=== PATIENT | male | born 1960 | race Caucasian/White ===

== ENCOUNTER 2018-08-16 05:52 | Emergency (ER) | payer OTHER ==
[~2018-08-16] VITALS: Ht 170.2 cm; Wt 77.1 kg
[~2018-08-16 05:52] MED LIST: COLACE100 MG PO; FLOMAX PO; IBUPROFEN 800800 M1 PO; MIRALAX17 GM PO; NAPROSYN500 MG PO; PERCOCET 5-3251 EACH PO; TYLENOL325 MG PO; UNICOMPLEX M TA1 TA1 PO
[2018-08-16] MEDS ORDERED: COZAAR 25 MG TA25 M1 (05:59)
[2018-08-16 06:08] LABS: HEMATOCRIT 47.1 % (42.0-52.0); HEMOGLOBIN 16.4 gm/dL (14.0-18.0); MCH 30.6 pg (26.0-34.0); MCHC 34.9 g/dL (28.0-37.0); MCV 87.9 fL (80.0-100.0); MPV 6.8 fl. (7.2-11.1); NUCLEATED RBCS 0 /100WBC; PLATELET COUNT* 214 thou/uL (150-400); RBC 5.36 mil/uL (4.50-6.00); RDW-CV 13.4 % (10.5-14.5); WBC 6.7 thou/uL (4.0-11.0)
[2018-08-16 06:25] LABS: PROTIME 10.2 Seconds (9.20-11.50)
[2018-08-16 06:31] LABS: URINE BILIRUBIN NEGATIVE (Negative); URINE BLOOD 1+ (Negative); URINE CLARITY CLEAR; URINE COLOR YELLOW; URINE GLUCOSE-RANDOM NEGATIVE (Negative); URINE KETONES NEGATIVE (Negative); URINE LEUKOCYTES-REFLEX NEGATIVE (Negative); URINE NITRITE-REFLEX NEGATIVE (Negative); URINE PROTEIN NEGATIVE (Negative); URINE UROBILINOGEN 0.2 E.U./dl (0.2-1.0)
[2018-08-16 06:42] LABS: CALCIUM 8.5 mg/dL (8.5-10.1); CREATININE 1.5 mg/dL (0.6-1.3); POTASSIUM 3.9 mmol/L (3.5-5.1)
[2018-08-16 06:44] LABS: BACTERIA-REFLEX 1-9 Few /HPF (None Seen); CASTS None Seen /LPF (None Seen); CRYSTALS None Seen /LPF (None Seen); MUCUS 0-3 Light strn/LPF (None Seen); SQUAMOUS 0-3 Few /LPF (0-3); URINE RBC 3-10 Few /HPF (0-2); URINE WBC-REFLEX 0-5 Rare /HPF (0-5)
[2018-08-16 06:53] LABS: ALBUMIN 3.7 g/dL (3.4-5.0); TOTAL BILIRUBIN 0.7 mg/dL (<0.1-1.0); TOTAL PROTEIN 7.2 g/dL (6.4-8.2)
[2018-08-16 07:02] LABS: ABSOLUTE EOSINOPHILS 0.1 thou/uL (0.0-0.7); ABSOLUTE LYMPHOCYTES 0.5 thou/uL (0.8-5.3); ABSOLUTE MONOCYTES 0.5 thou/uL (0.0-1.2); ABSOLUTE NEUTROPHILS 5.6 thou/uL (1.6-8.1); ANISOCYTOSIS 1+; PLATELET ESTIMATE ADEQUATE; POIKILOCYTOSIS 1+
[2018-08-16] MEDS ORDERED: ZOFRAN ODT4 MG PO (07:06)
[2018-08-16 08:36] VITALS: BP 112/65
--- NOTE | 2018-08-16 11:36 | EKG ---
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 : 1960 Requested By: Yennifer Whalen Order Number: [id number] MD: Camilo Jimenez Measurements Intervals [place] Rate: 87 P: 60 AR: 167 QRS: 79 QRSD: 84 T: 28 QT: 349 QTc: 420 Interpretive Statements Sinus rhythm Compared to ECG 03/30/2015 18:11:10 No significant changes Electronically Signed On 08-16-2018 11:35:46 DIRECTOR PRODUCT DEVELOPMENT by Camilo Jimenez [email or web address] <ELECTRONICALLY SIGNED> By: Camilo Jimenez MD, [facility] 08/16/18 1135 [phone] Camilo Jimenez MD, FACC /EPI
== END 2018-08-16 08:36 | disposition home or self-care (01) ==
LOC: M.ERS 05:52
PROVIDERS: Emergency Medicine
DX: R07.89 Other chest pain (principal); Z87.442 Personal history of urinary calculi; Z90.49 Acquired absence of other specified parts of digestive tract; Z88.5 Allergy status to narcotic agent

== ENCOUNTER 2018-10-18 02:38 | Inpatient (IN) | payer OTHER ==
[~2018-10-18] VITALS: Ht 170.2 cm; Wt 81.3 kg
[~2018-10-18 02:38] MED LIST changes: +COZAAR 25 MG TA25 M1 PO; +ZOFRAN ODT4 MG PO
[2018-10-18 02:47] VITALS: BP 158/102
[2018-10-18 03:01] LABS: ABSOLUTE BASOPHILS 0.1 thou/uL (0.0-0.2); ABSOLUTE EOSINOPHILS 0.1 thou/uL (0.0-0.7); ABSOLUTE LYMPHOCYTES 2.1 thou/uL (0.8-5.3); ABSOLUTE MONOCYTES 0.6 thou/uL (0.0-1.2); ABSOLUTE NEUTROPHILS 3.2 thou/uL (1.6-8.1); EOSINOPHILS 2.4 %; HEMATOCRIT 46.2 % (42.0-52.0); HEMOGLOBIN 16.4 gm/dL (14.0-18.0); MCH 30.9 pg (26.0-34.0); MCHC 35.5 g/dL (28.0-37.0); MCV 87.1 fL (80.0-100.0); MONOCYTES 9.7 %; NUCLEATED RBCS 0 /100WBC; PLATELET COUNT* 264 thou/uL (150-400); POLYS 52.9 %; RDW-CV 13.3 % (10.5-14.5); WBC 6.1 thou/uL (4.0-11.0)
[2018-10-18 03:52] LABS: ANION GAP 9 mmol/L (7-16); BUN 18 mg/dL (7-18); CHLORIDE 106 mmol/L (98-107); CO2 28 mmol/L (21-32); CREATININE 1.5 mg/dL (0.6-1.3); GLUCOSE 97 mg/dL (70-99); POTASSIUM 3.7 mmol/L (3.5-5.1); SODIUM 143 mmol/L (136-145)
[2018-10-18 04:03] LABS: ALBUMIN 3.7 g/dL (3.4-5.0); ALKALINE PHOSPHATASE 93 U/L (46-116); LIPASE 208 U/L (73-393); NT-PRO BRAIN NAT PEPTIDE 16 pg/mL (<300); SGOT 19 U/L (15-37); SGPT 40 U/L (30-65); TOTAL BILIRUBIN 0.5 mg/dL (<0.1-1.0); TROPONIN-I LEVEL <0.06 ng/mL (<0.06)
[2018-10-18 05:14] VITALS: BP 122/77
[2018-10-18 05:52] VITALS: BP 121/85
--- NOTE | 2018-10-18 05:56 | NUR ---
TRANSFER FROM ED RECIEVED REPORT AND ASSUMED CARE AT 0530. 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 VITAL SIGNS ARE STABLE. PT IS UP ADLIB. NPO UNTIL ABDOMINAL ULTRA SOUND AND FOR CARDIAC. PT DENIES ANY PAIN AT THIS TIME. ASSESSMENT COMPLETED, DISCUSSED PLAN OF CARE AND PT UNDERSTANDS. BED LOCKED AND CALL LIGHT WITHIN REACH. FALL PRECAUTIONS IN PLACE. HOURLY ROUNDING DONE AND ALL NEEDS MET. NURSING WILL CONTINUE TO MONITOR.
[2018-10-18 08:00] VITALS: BP 113/78
[2018-10-18 10:21] LABS: CHOLESTEROL 188 mg/dL (<200); HDL CHOLESTEROL 40 mg/dL (>40); LDL CHOLESTEROL 124 mg/dL (<100); TC:HDL 4.7 Ratio (Not establshd); TRIGLYCERIDE 124 mg/dL (<150); VLDL 25 mg/dL (<40)
[2018-10-18 10:24] LABS: SERUM ASSESSMENT Clear
--- NOTE | 2018-10-18 11:43 | 2DMMODE ---
[place] [address] 2 D/M-MODE ECHOCARDIOGRAM Name: TONI HERRON JR Room: [address] IN [facility]#: [id number] Admission: 10/18/18 Attend Phys: Gisselle Deshpande Discharge: Date of : 60 Date of Service: 10/18/18 1143 Report #: [id number] THIS REPORT FOR: //name// APPROVED REPORT Study performed: 10/18/2018 09:54:12 EXAM: Comprehensive 2D, Doppler, and color-flow Echocardiogram Patient Location: In-Patient Room #: [facility] Status: routine BSA: 1.92 HR: 61 bpm BP: 113/78 mmHg Rhythm: NSR Other Information Study Quality: Good Indications Chest Pain 2D Dimensions IVSd: 9.26 (7-11mm) LVOT Diam: 21.28 (18-24mm) LVDd: 44.15 mm PWd: 7.93 (7-11mm) Ascending Ao: 29.83 (22-36mm) LVDs: 26.36 (25-40mm) Aortic Root: 33.82 mm Volumes Left Atrial Volume (Systole) LA ESV Index: 21.60 mL/m2 Aortic Valve AoV Peak Cristino.: 0.95 m/s AO Peak Gr.: 3.59 mmHg LVOT Max P.70 mmHg AO Mean Gr.: 2.17 mmHg LVOT Mean P.27 mmHg LVOT Max V: 0.82 m/s AO V2 VTI: 18.73 cm LVOT Mean V: 0.51 m/s NAIF (VTI): 3.34 cm2 LVOT V1 VTI: 17.61 cm Mitral Valve E/A Ratio: 1.10 MV Decel. Time: 211.34 ms MV E Max Cristino.: 0.50 m/[place] [address] 2 D/M-MODE ECHOCARDIOGRAM Name: TONI HERRON JR Room: [address] IN [facility]#: [id number] Admission: 10/18/18 Attend Phys: Gisselle Deshpande Discharge: Date of : 60 Date of Service: 10/18/18 1143 Report #: [id number] MV PHT: 61.29 ms MVA (PHT): 3.59 cm2 TDI E/Lateral E': 3.57 E/Medial E': 5.56 Medial E' Cristino.: 0.09 m/s Lateral E' Cristino.: 0.14 m/s Pulmonary Valve PV Peak Cristino.: 0.82 m/s PV Peak Gr.: 2.68 mmHg Left Ventricle The left ventricle is normal size. There is normal LV segmental wall motion. There is normal left ventricular wall thickness. Left ventricular systolic function is normal. LVEF is 55-60%. Transmitral Doppler flow pattern suggests impaired LV relaxation. Right Ventricle The right ventricle is normal size. The right ventricular systolic function is normal. Atria The left atrium size is normal. The right atrium size is normal. Aortic Valve The aortic valve is normal in structure. No aortic regurgitation is present. There is no aortic valvular stenosis. Mitral Valve The mitral valve is normal in structure. Trace mitral regurgitation. No evidence of mitral valve stenosis. Tricuspid Valve The tricuspid valve is normal in structure. Unable to assess PA pressure. Trace tricuspid regurgitation. Pulmonic Valve The pulmonary valve is normal in structure. There is no pulmonic valvular regurgitation. Great Vessels The aortic root is normal in size. IVC is normal in size and collapses >50% with [place] [address] 2 D/M-MODE ECHOCARDIOGRAM Name: TONI HERRON JR Room: [address] IN [facility]#: [id number] Admission: 10/18/18 Attend Phys: Gisselle Deshpande Discharge: Date of : 60 Date of Service: 10/18/18 1143 Report #: [id number] There is no pericardial effusion. <Conclusion> The left ventricle is normal size. There is normal left ventricular wall thickness. Left ventricular systolic function is normal. LVEF is 55-60%. Transmitral Doppler flow pattern suggests impaired LV relaxation. Trace mitral regurgitation. IVC is normal in size and collapses >50% with inspiration. <ELECTRONICALLY SIGNED> By: Vin Serrano MD, FACC 10/18/18 1143 1143 1143 Vin Serrano MD, FACC /INF
--- NOTE | 2018-10-18 11:44 | NUR ---
VSS, ASSUMED CARE IN THE AM, ASSESSMENT PERFORMED AND CHARTED, FALL PRECAUTIONS IN PLACE AND CALL LIGHT IN REACH, PT IS A&O4 AND UP AD JONE, DENIES ANY PAIN IS TRACING SR/SB ON THE MONITOR, PT GOAL IS TO HAVE NO CHEST PAIN ON DAY OF CARE. WILL FOLLOW WITH PLAN OF CARE,
--- NOTE | 2018-10-18 13:55 | NUR ---
Assessment: CM spoke w/pt and spouse to discuss d/c planning and to educate on role of CM. pt is A&Ox4. lives at home w/spouse. Independent w/all ADLs. pt is employeed and drives. Has no DMEs nor any hx w/SNF or HH. pt denies any needs at this time. CM to continue to follow to provide support/assistance PRN.
--- NOTE | 2018-10-18 16:30 | EKG ---
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
--- NOTE | 2018-10-18 16:36 | EXE ---
[place] [address] STRESS ECHOCARDIOGRAM Name: TONI HERRON JR Room: [address] IN [facility]#: [id number] Admission: 10/18/18 Attend Phys: Gisselle Deshpande Discharge: Date of : 60 Date of Service: 10/18/18 1635 Report #: [id number] THIS REPORT FOR: //name// APPROVED REPORT Study performed: 10/18/2018 15:54:22 Exam: Stress Echocardiogram Indication: Chest pain , Palpitations Patient Location: In-Patient Stress Nurse: Manasa Ness RN Room #: [facility] [place][note 2] Supervising Physician: Vin Serrano MD Status: routine Ht: 5 ft 7 in HR: 62 bpm BP: 119/73 mmHg Rhythm: NSR Medical History Allergies: MORPHINE Cardiac Risk Factors: HTN, FHX of CAD Procedure The patient underwent an Exercise Stress Test using the [place] Protocol. Blood pressure, heart rate, and EKG were monitored. An Echocardiogram was performed by converting technician in four stages in quad fashion. At peak stress, four selected images were obtained and placed side by side with resting images for comparison. Stress Test Details HR Resting HR: 62 bpm Max Heart Rate (APMHR): 162 bpm Max HR Achieved: 167 bpm Target HR (85% APMHR): 137 bpm % of APMHR: 103 Recovery HR: 111 bpm HR response to stress: Normal HR response to stress BP Resting BP: 119/73 mmHg Max BP: 220/88 mmHg Recovery BP: 139/75 mmHg BP response to stress: Normal blood pressure response [place] [address] STRESS ECHOCARDIOGRAM Name: TONI HERRON JR Room: [address]#: [id number] Admission: 10/18/18 Attend Phys: Gisselle Deshpande Discharge: Date of : 60 Date of Service: 10/18/18 1635 Report #: [id number] Resting ECG: Sinus Rhythm, normal EKG Stress ECG: Sinus Tachycardia ST Change: none Arrhythmia: None Recovery ECG: Sinus Rhythm Recovery ST Change: None Recovery Arrhythmia: None Clinical Reason for Termination: Maximal effort Exercise duration: 7 min 5 sec Highest Stage Achieved: Stage 3: 3.4 mph at 14% grade. Exercise capacity: 8.72 METs The patient tolerated standard [place] protocol exercise without significant symptoms. Stress ECG Conclusion The baseline 12-lead EKG showed sinus rhythm with no significant ST or T wave abnormalities. EKGs obtained during and post exercise showed sinus rhythm and sinus tachycardia with no significant ST or T wave changes when compared to baseline. There were no stress-induced arrhythmias. Pre-Stress Echo The resting Echocardiogram showed normal left ventricular contractility with an estimated Ejection Fraction of about 60-65%. Post-Stress Echo The stress Echocardiogram showed normal left ventricular contractility with an estimated Ejection Fraction of about >70%. Conclusion Clinical Response: Non-ischemic Exercise Capacity: Average Stress ECG Response: Non-ischemic Stress Echo Images: Non-ischemic Other Information Study Quality: Good <ELECTRONICALLY SIGNED> By: Vin Serrano MD, FACC 10/18/18 1635 1635 1635 Vin Serrano MD, FACC /INF
[2018-10-18 16:56] VITALS: BP 105/74
[2018-10-18 19:50] VITALS: BP 111/64
[2018-10-19] VITALS: BP 101/51
--- NOTE | 2018-10-19 03:38 | NUR ---
RECIEVED REPORT AND ASSUMED CARE AT 1900. HEALTH INFORMATION TECHNOLOGIST IN PLACE. VITAL SIGNS ARE STABLE. PT UP ADLIB. PT DENIES ANY PAIN AT THIS TIME. ASSESSMENT COMPLETED, DISCUSSED PLAN OF CARE, PT UNDERSTANDS. BED LOCKED AND CALL LIGHT WITHIN REACH. FALL PRECAUTIONS IN PLACE. HOURLY ROUNDING AND ALL NEEDS MET. NURSING WILL CONTINUE TO MONITOR.
[2018-10-19 04:00] VITALS: BP 106/56
[2018-10-19 08:34] VITALS: BP 119/80
[2018-10-19] MEDS ORDERED: OMEPRAZOLE 20 M20 M1 PO (10:33)
[2018-10-19 10:36] VITALS: BP 119/80
--- NOTE | 2018-10-19 10:47 | NUR ---
VSS, ASSUMED CARE IN THE AM, ASSESSMENT PERFORMED AND CHARTED, FALL PRECAUTIONS IN PLACE AND CALL LIGHT IN REACH, PT IS A&O4 ON RA, TRACING SR ON THE MONITOR, PT GOAL IS TO D/C TODAY, HE DENIES ANY PAIN. AT THIS TIME I HAVE RECIEVED D/C ORDERS, FILLED OUT D/C INSTRUCTION AND TOOK OUT IV AND TELE MONITOR, OT DENIES ANY QUESTIONS OR CONCERNS AT TIME OF D/C HOURLY ROUNDS COMPLETED.
== END 2018-10-19 11:30 | disposition home or self-care (01) | DRG 392 ==
LOC: M.ERS 02:38 → M.2W 04:37 → M.TBA-ER 04:37 → M.2W 05:20
PROVIDERS: Emergency Medicine; Registered Nurse; ADMIT Internal Medicine
DX: K21.9 Gastro-esophageal reflux disease without esophagitis (principal); N17.9 Acute kidney failure, unspecified; I10 Essential (primary) hypertension; K44.9 Diaphragmatic hernia without obstruction or gangrene; E78.5 Hyperlipidemia, unspecified; K80.20 Calculus of gallbladder without cholecystitis without obstruction; Z88.6 Allergy status to analgesic agent; Z87.442 Personal history of urinary calculi; Z90.49 Acquired absence of other specified parts of digestive tract; Z79.899 Other long term (current) drug therapy; Z82.49 Family history of ischemic heart disease and other diseases of the circulatory system

== ENCOUNTER 2019-07-04 03:57 | Emergency (ER) | payer OTHER ==
[~2019-07-04] VITALS: Ht 172.7 cm; Wt 80.7 kg
[~2019-07-04 03:57] MED LIST changes: +OMEPRAZOLE 20 M20 M1 PO
[2019-07-04 04:27] LABS: ABSOLUTE EOSINOPHILS 0.2 thou/uL (0.0-0.7); ABSOLUTE LYMPHOCYTES 1.9 thou/uL (0.8-5.3); ABSOLUTE MONOCYTES 0.7 thou/uL (0.0-1.2); ABSOLUTE NEUTROPHILS 4.3 thou/uL (1.6-8.1); BASOPHILS 0.5 %; EOSINOPHILS 2.4 %; HEMOGLOBIN 15.8 gm/dL (14.0-18.0); LYMPHOCYTES 26.3 %; MCH 29.9 pg (26.0-34.0); MCHC 34.4 g/dL (28.0-37.0); MCV 87.1 fL (80.0-100.0); MONOCYTES 10.4 %; NUCLEATED RBCS 0 /100WBC; PLATELET COUNT* 219 thou/uL (150-400); POLYS 60.4 %; RBC 5.29 mil/uL (4.50-6.00); RDW-CV 13.7 % (10.5-14.5); WBC 7.2 thou/uL (4.0-11.0)
[2019-07-04 05:02] LABS: CREATININE 1.5 mg/dL (0.6-1.3); POTASSIUM 3.9 mmol/L (3.5-5.1)
[2019-07-04 05:07] LABS: ALBUMIN 3.9 g/dL (3.4-5.0); TOTAL BILIRUBIN 0.3 mg/dL (<0.1-1.0); TOTAL PROTEIN 7.2 g/dL (6.4-8.2)
[2019-07-04 05:36] LABS: URINE BILIRUBIN NEGATIVE (Negative); URINE BLOOD 3+ (Negative); URINE CLARITY CLEAR; URINE COLOR YELLOW; URINE GLUCOSE-RANDOM NEGATIVE (Negative); URINE KETONES NEGATIVE (Negative); URINE LEUKOCYTES-REFLEX NEGATIVE (Negative); URINE NITRITE-REFLEX NEGATIVE (Negative); URINE PROTEIN NEGATIVE (Negative); URINE SPECIFIC GRAVITY 1.025 (1.005-1.030); URINE UROBILINOGEN 0.2 E.U./dl (0.2-1.0)
[2019-07-04] MEDS ORDERED: NORCO 5-325 TA1 EAC1 PO (05:44)
[2019-07-04] MEDS ORDERED: FLOMAX0.4 MG PO (05:44)
[2019-07-04] MEDS ORDERED: ZOFRAN ODT4 MG PO (05:44)
[2019-07-04 05:50] LABS: BACTERIA-REFLEX 1-9 Few /HPF (None Seen); CASTS None Seen /LPF (None Seen); CRYSTALS None Seen /LPF (None Seen); MUCUS 0-3 Light strn/LPF (None Seen); SQUAMOUS 0-3 Few /LPF (0-3); URINE RBC >20 Many /HPF (0-2); URINE WBC-REFLEX 0-5 Rare /HPF (0-5)
[2019-07-04 06:13] VITALS: BP 129/78
== END 2019-07-04 06:15 | disposition home or self-care (01) ==
LOC: M.ERS 03:57
PROVIDERS: Personal Emergency Response Attendant
DX: N23 Unspecified renal colic (principal); I10 Essential (primary) hypertension; Z87.442 Personal history of urinary calculi; Z90.49 Acquired absence of other specified parts of digestive tract; Z88.6 Allergy status to analgesic agent